=== PATIENT | male | born 1950 | race Caucasian/White ===

== ENCOUNTER 2017-12-05 01:32 | Inpatient (IN) ==
[2017-12-05] MEDS ORDERED: *HR* Heparin 5,000 UNIT/ML VIAL IVP PRN ×2 (03:37)
[2017-12-05] MEDS ORDERED: Naloxone 0.4 MG/ML INJ IVP PRN (03:41)
[2017-12-05] MEDS ORDERED: Acetaminophen 325 MG TABLET PO PRN (03:41)
[2017-12-05] MEDS ORDERED: Heparin 25,000 UNIT/500 ML D5W 25,000 UNIT/500 ML BAG IVC SCH (03:45)
[2017-12-05] MEDS ORDERED: Nitroglycerin 25 MG/250 ML INFUS..BTL IVC SCH (03:45)
--- NOTE | 2017-12-05 03:49 | Internal Med History&Physical ---
Date of Encounter: 12/05/17 Time of Encounter: 03:00 Internal Medicine - H&P: HPI Chief complaint: Chest pain Admitted From: Home Plans for Post Hospital Care: Home History of present illness: Mr. Garcias is a 67 year old male presented to [place] emergency room for chest pain. Past medical history is significant for CAD S/P CABG, hypertension. Patient had CABG 6 years ago. Patient has another "heart attack" 4 years ago and had [facility] which shows 2 vessels are 100% blocked, cannot place stents, recommend medical management. Patient does not have angina since then. Today around 6 PM, he started to have left arm pain then developed left-sided chest pain. The pain is dull, 8/10, constant. Patient took nitroglycerin sublingual but pain is not improved on nitroglycerin. Patient has shortness of breath, nausea, and diaphoresis. In [place] [facility], patient was given nitroglycerin again, patient still has pain. Patient has to be given morphine to control the pain. Patient was considered unstable angina and was started heparin and nitroglycerin drip. Patient was transferred to our hospital for further management. As patient arrived to our hospital, his chest pain resolved. Patient will be admitted for further management. Past Med Surg Social Fam HX - Past Medical History Medical history: coronary artery disease, hyperlipidemia, hypertension, myocardial infarction, RA, other Additional medical history: CHRONIC BACK PAIN Psychiatric history: no psych history - Past Surgical History Additional surgical history: Abdominal surgery. Heart caths - Social History Smoking Status: Never smoker Smokeless Tobacco Status: No Alcohol use: none Drug use: none - Family History Mother History Unknown: Yes Internal Medicine - H&P: Meds Albuterol Sulfate 5 mg IH TID 11/01/15 [History] Aspirin 325 mg PO DAILY 11/01/15 [History] Clopidogrel Bisulfate [Plavix] 75 mg PO DAILY 11/01/15 [History] Isosorbide MONOnitrate (24 HR) [Imdur] 30 mg PO DAILY 11/01/15 [History] Lisinopril [Zestril] 2.5 mg PO DAILY 11/01/15 [History] Metoprolol [Lopressor] 25 mg PO BID 11/01/15 [History] Omeprazole [PriLOSEC] 20 mg PO BIDAC 11/01/15 [History] Pravastatin Sodium [Pravachol] 40 mg PO HS 11/01/15 [History] Primidone [Mysoline] 50 mg PO BID 11/01/15 [History] Ranolazine [Ranexa] 500 mg PO BID 11/01/15 [History] Spironolactone [Aldactone] 25 mg PO BID 11/01/15 [History] Furosemide [Lasix] 40 mg PO DAILY 11/27/16 [History] 3 Allergy/AdvReac Type Severity Reaction Status Date / Time pregabalin [From Lyrica] Allergy See Verified 12/04/17 23:25 Comments hydrocodone AdvReac Nausea Verified 12/04/17 23:25 All Systems PM: A 10-system review of systems was performed and is negative for pertinent findings except as documented above in the HPI. - Constitutional Vitals: Temp Pulse Resp BP Pulse Ox 98.0 F 76 18 136/88 95 12/05/17 03:02 12/05/17 03:02 12/05/17 03:02 12/05/17 03:02 12/05/17 03:02 General appearance: Present: A&O X 3, no acute distress, answers questions appropriately - Head Head exam: Present: atraumatic, normocephalic - Eye Eye exam: Present: PERRL, conjuntiva pink, sclera anicteric Pupils: Present: PERRL - Neck Neck exam general surgery: Present: supple, trachea midline. Absent: lymphadenopathy - Respiratory Respiratory exam: Present: CTAB. Absent: accessory muscle use, rales, rhonchi, wheezes - Cardiovascular Cardiovascular exam: Present: RRR, +S1, +S2. Absent: diastolic murmur, gallop, rubs, systolic murmur - GI/Abdominal GI/Abdominal exam: Present: normal bowel sounds, soft, no peritoneal signs. Absent: distended, tenderness - Extremities Exam Extremities exam: Present: warm, radial pulses palpable and symmetrical. Absent : calf tenderness, cyanotic, pedal edema - Neurological Exam Neurological exam: Present: CN II-XII intact, oriented X3, no focal deficits. Absent: pronater drift, facial droop, speech deficit - Skin Skin exam: Present: dry, intact Internal Med - H&P Results - EKG Data -: EKG Interpreted by Myself (EKG shows age undetermined inferior and lateral infarct.) EKG shows normal: sinus rhythm Rate: normal - Assessment and plan (1) Unstable angina Current Visit: Yes Status: Acute Assessment and plan: Patient has history of CAD with C showing stenosis cannot be placed with stent. Typical chest pain consider unstable angina and the need to rule out ACS. - Place patient on continuous cardiac monitoring - Track 3 sets of troponin - Cont heparin and NTG drip. - Echo - Obtain [facility] report from [facility] in [facility]. - Consult cardio for medication optimization. (2) CAD (coronary artery disease) Current Visit: Yes Status: Acute Assessment and plan: Management as above Qualifiers: Coronary Disease-Associated Artery/Lesion type: bypass graft [place] vs. transplanted heart: [place] heart Associated angina: with unstable angina Qualified Code(s): I25.700 - Atherosclerosis of coronary artery bypass graft(s) , unspecified, with unstable angina pectoris (3) Hypertension Current Visit: Yes Status: Acute Assessment and plan: Patient is on nitroglycerin drip now. Blood pressure is not high. We will resume home medication after verification. Qualifiers: Hypertension type: essential hypertension Qualified Code(s): I10 - Essential (primary) hypertension (4) DVT prophylaxis Current Visit: Yes Status: Acute Assessment and plan: On heparin drip (5) Chest pain, rule out acute myocardial infarction Current Visit: No Status: Acute Assessment and plan: Management as above - Time Spent With Patient Total time spent is greater than 50% in coordination of care (as documented) at patient's floor/unit and/or counseling patient: 40 minutes Greater than 35 minutes
[2017-12-05 04:52] LABS: Basophils # 0.1 K/mcL (0.0-0.2); Basophils % 0.4 %; Eosinophils # 0.1 K/mcL (0.0-0.6); Eosinophils % 0.6 %; Hematocrit 39.8 % (37.5-50.1); Immature Granulocytes % 0.5 % (0-4); Lymphocytes # 2.2 K/mcL (0.6-4.6); Lymphocytes % 16.7 %; Mean Corpuscular HGB Conc 32.7 g/dL (31.6-35.5); Mean Corpuscular Hemoglobin 30.7 pg (28.0-33.3); Mean Corpuscular Volume 94.1 fL (83.0-100.0); Monocytes # 1.1 K/mcL (0.0-1.3); Monocytes % 8.3 %; Neutrophils # 9.6 K/mcL (1.6-8.9); Platelet Count 140 K/mcL (140-400); Red Blood Count 4.23 M/mcL (4.19-5.50); Red Cell Distribution Width 12.9 % (11.5-14.5); Segmented Neutrophils % 73.5 %
[2017-12-05 05:05] LABS: BUN/Creatinine Ratio 21 (6-26); Blood Urea Nitrogen 15 mg/dL (8-23); Calcium 8.4 mg/dL (8.6-10.3); Carbon Dioxide 28 mEq/L (23-29); Chloride 107 mEq/L (98-107); Glucose 136 mg/dL (70-105); Osmolality,Calculated 297 (280-300); Potassium 3.1 mEq/L (3.5-5.1); Sodium 142 mEq/L (136-145); eGFR For African Americans > 60 (> 60); eGFR For Non-African Americans > 60 (> 60)
[2017-12-05] MEDS ORDERED: Ranolazine 500 MG TAB.ER.12H PO SCH (10:00)
[2017-12-05] MEDS ORDERED: ALBUTEROL SULFATE 5 MG IH SCH (10:00)
--- NOTE | 2017-12-05 10:12 | Internal Med Progress Note ---
<Rakan Hart - Last Filed: 12/05/17 15:27> Date of Encounter: 12/05/17 - Assessment and plan (1) CAD (coronary artery disease) Current Visit: Yes Status: Acute Qualifiers: Coronary Disease-Associated Artery/Lesion type: bypass graft [place] vs. transplanted heart: [place] heart Associated angina: with unstable angina Qualified Code(s): I25.700 - Atherosclerosis of coronary artery bypass graft(s) , unspecified, with unstable angina pectoris (2) Hypertension Current Visit: Yes Status: Acute Qualifiers: Hypertension type: essential hypertension Qualified Code(s): I10 - Essential (primary) hypertension (3) DVT prophylaxis Current Visit: Yes Status: Acute (4) Inferior myocardial infarction Current Visit: Yes Status: Acute - Time Spent With Patient Total time spent is greater than 50% in coordination of care (as documented) at patient's floor/unit and/or counseling patient: - Constitutional Vitals: Temp Pulse Resp BP Pulse Ox 98.6 F 62 16 116/76 95 12/05/17 15:18 12/05/17 15:18 12/05/17 15:18 12/05/17 15:18 12/05/17 15:18 Internal Medicine: Result - Labs CBC & Chem 7: 12/05/17 04:23 12/05/17 04:23 Labs: Short CBC 12/05/17 Range/Units 04:23 WBC 13.1 H (4.3-11.1) K/mcL Hgb 13.0 D (12.9-16.9) g/dL Hct 39.8 (37.5-50.1) % Plt Count 140 (140-400) K/mcL Neutrophils # 9.6 H (1.6-8.9) K/mcL BMP 12/05/17 04:23 Sodium 142 Potassium 3.1 L Chloride 107 Carbon Dioxide 28 BUN 15 Creatinine 0.71 Glucose 136 H Calcium 8.4 L Cardiac Enzymes 12/05/17 12/05/17 Range/Units 04:23 09:15 Troponin I < 0.03 < 0.03 (< 0.04) ng/mL - Impressions Impressions Echocardiogram 12/05/17 03:39 Impressions: LVEF 45%. Normal LV chamber size and wall thickness. Segmental left ventricular systolic dysfunction. Atypical septal motion consistent with post-operative status. Mild left ventricular diastolic dysfunction. Normal right ventricular structure and function. Mild tricuspid regurgitation. No pulmonary hypertension. Left Ventricular Wall Motion: Rest Echo Findings The basal inferior and basal inferior lateral estrada were akinetic. All other wall segments showed normal motion. Findings: Study Quality * Technically adequate exam. ECG Findings * Sinus bradycardia. Left Ventricle * LVEF 45%. * Normal LV chamber size and wall thickness. * Segmental left ventricular systolic dysfunction. * Atypical septal motion consistent with post-operative status. * Mild left ventricular diastolic dysfunction. Right Ventricle * Normal right ventricular structure and function. Left Atrium * Mild to moderately dilated left atrium. Right Atrium * Mildly dilated right atrium. Aortic Valve * Aortic valve not well visualized. * Trace aortic regurgitation. * No aortic stenosis. Mitral Valve * Normal mitral valve structure and function. * No mitral stenosis. * Trace mitral regurgitation. Tricuspid Valve * Normal tricuspid valve structure. * Mild tricuspid regurgitation. * No pulmonary hypertension. Pulmonic Valve * Normal pulmonic valve structure and function. * Trace pulmonic regurgitation. Aorta * Normally sized aortic root. Pericardium * The pericardium appears normal. IVC * The IVC is not well evaluated. Pulmonary Artery * Normal visualized portions of the main pulmonary artery. Consult Discharge Plan - Plan Referrals: NONE,PCP [Primary Care Provider] - - Attending Attestation I examined this patient and my medical decision-making was reviewed with the Resident Physician. I agree with the documented findings, disposition and treatment plan as described except to the extent set forth below. <Gustavo Diaz - Last Filed: 12/05/17 16:01> Date of Encounter: 12/05/17 Time of Encounter: 08:45 - Assessment and plan (1) Chest discomfort Current Visit: Yes Status: Acute Assessment and plan: Presented to [facility] with acute onselt of chest pain, not relieved by nitroglycerin. [place] CAD, prior CABG 6 years ago. Reports [facility] 4 years ago, medical therapy recommended. Serial troponin measurements have been negative. 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 Overall LVEF 45%. Cardiology consulted and discussed finding with patient in depth. Given his presentation and significant history, they recommended a stress test to further evaluate, to which patient declined and states he is not interested in stress testing. He was made aware of the risks of his decision, including undiagnosed significant cardiac issues and potentially worsening symptoms, including cardiac causes of . Cardiology recommended: continuing aspirin, Plavix, atorvastatin, beta cj, ILIANA inhibitor therapy. Increasing Ranexa to 1000 mg twice daily. Increasing Imdur to 60 mg daily. Stop heparin drip and okay to turn off nitroglycerin drip. Possible discharge tomorrow on optimal medical management if patient remains asymptomatic. Plan for outpatient follow up with main cardiology in [place]. (2) CAD (coronary artery disease) Current Visit: Yes Status: Acute Assessment and plan: Management as above Qualifiers: Coronary Disease-Associated Artery/Lesion type: bypass graft [place] vs. transplanted heart: [place] heart Associated angina: with unstable angina Qualified Code(s): I25.700 - Atherosclerosis of coronary artery bypass graft(s) , unspecified, with unstable angina pectoris (3) Hypertension Current Visit: Yes Status: Acute Assessment and plan: Patient is on nitroglycerin drip now, plan to transition to PO imdur (increased dose per cardiology). Blood pressure is not high. Plan to resume home medication Qualifiers: Hypertension type: essential hypertension Qualified Code(s): I10 - Essential (primary) hypertension (4) DVT prophylaxis Current Visit: Yes Status: Acute Assessment and plan: On heparin drip will plan to transition to SQ - Time Spent With Patient Total time spent is greater than 50% in coordination of care (as documented) at patient's floor/unit and/or counseling patient: - Subjective Interval history: Patient seen and evaluated in bed. No acute distress. States chest pain stopped on transport to [facility]. History of CABG 6 years ago, MS 4 yrs ago with two 100% occluded vessels, and notes a similar episode of chest pain approx 1 year ago when he was transferred to [place] for medical management. Denies chest pain currently, notes dyspnea is not new however he denies being on oxygen at home. Denies nausea or vomiting. Denies swelling/edema. - Constitutional Vitals: Temp Pulse Resp BP Pulse Ox 98.2 F 58 16 127/80 98 12/05/17 06:52 12/05/17 06:52 12/05/17 06:52 12/05/17 06:52 12/05/17 06:52 General appearance: Present: cooperative, A&O X 3, pleasant, no acute distress, answers questions appropriately - Head Head exam: Present: atraumatic, normal inspection, normocephalic - Eye Eye exam: Present: EOMI, normal appearance, sclera anicteric - ENT ENT exam: Present: mucous membranes moist - Neck Neck exam general surgery: Present: full ROM, normal inspection, supple - Respiratory Respiratory exam: Present: CTAB. Absent: respiratory distress, rhonchi, stridor , wheezes - Cardiovascular Cardiovascular exam: Present: RRR, +S1, +S2. Absent: distant heart sounds, systolic murmur - GI/Abdominal GI/Abdominal exam: Present: normal bowel sounds, soft, no peritoneal signs. Absent: distended, firm, guarding, tenderness - Extremities Exam Extremities exam: Present: normal inspection, warm. Absent: cyanotic, pedal edema, tenderness - Neurological Exam Neurological exam: Present: alert, oriented X3, no focal deficits. Absent: speech deficit - Psychiatric Psychiatric exam: Present: normal affect, normal mood - Skin Skin exam: Present: dry, intact, normal color, warm. Absent: cyanosis, erythema , rash Internal Medicine: Result - Labs CBC & Chem 7: 12/05/17 04:23 12/05/17 04:23 Labs: Short CBC 12/05/17 Range/Units 04:23 WBC 13.1 H (4.3-11.1) K/mcL Hgb 13.0 D (12.9-16.9) g/dL Hct 39.8 (37.5-50.1) % Plt Count 140 (140-400) K/mcL Neutrophils # 9.6 H (1.6-8.9) K/mcL BMP 12/05/17 04:23 Sodium 142 Potassium 3.1 L Chloride 107 Carbon Dioxide 28 BUN 15 Creatinine 0.71 Glucose 136 H Calcium 8.4 L Cardiac Enzymes 12/05/17 12/05/17 Range/Units 04:23 09:15 Troponin I < 0.03 < 0.03 (< 0.04) ng/mL - Impressions Impressions Echocardiogram 12/05/17 03:39 Impressions: LVEF 45%. Normal LV chamber size and wall thickness. Segmental left ventricular systolic dysfunction. Atypical septal motion consistent with post-operative status. Mild left ventricular diastolic dysfunction. Normal right ventricular structure and function. Mild tricuspid regurgitation. No pulmonary hypertension. Left Ventricular Wall Motion: Rest Echo Findings The basal inferior and basal inferior lateral estrada were akinetic. All other wall segments showed normal motion. Findings: Study Quality * Technically adequate exam. ECG Findings * Sinus bradycardia. Left Ventricle * LVEF 45%. * Normal LV chamber size and wall thickness. * Segmental left ventricular systolic dysfunction. * Atypical septal motion consistent with post-operative status. * Mild left ventricular diastolic dysfunction. Right Ventricle * Normal right ventricular structure and function. Left Atrium * Mild to moderately dilated left atrium. Right Atrium * Mildly dilated right atrium. Aortic Valve * Aortic valve not well visualized. * Trace aortic regurgitation. * No aortic stenosis. Mitral Valve * Normal mitral valve structure and function. * No mitral stenosis. * Trace mitral regurgitation. Tricuspid Valve * Normal tricuspid valve structure. * Mild tricuspid regurgitation. * No pulmonary hypertension. Pulmonic Valve * Normal pulmonic valve structure and function. * Trace pulmonic regurgitation. Aorta * Normally sized aortic root. Pericardium * The pericardium appears normal. IVC * The IVC is not well evaluated. Pulmonary Artery * Normal visualized portions of the main pulmonary artery.
[2017-12-05] MEDS: Aspirin 325 MG TABLET PO SCH (11:18)
[2017-12-05] MEDS: Furosemide 40 MG TABLET PO SCH ×2 (11:19→16:26)
[2017-12-05] MEDS: Spironolactone 25 MG TABLET PO SCH ×2 (11:19→21:42)
[2017-12-05] MEDS: Primidone 50 MG TABLET PO SCH ×2 (11:20→21:42)
--- NOTE | 2017-12-05 11:45 | Cardiology Consult Note ---
Date of Encounter: 12/05/17 Time of Encounter: 11:43 Assessment and Plan (1) Chest discomfort Current Visit: Yes Status: Acute [place] CAD, prior CABG 6 years ago. Reports [facility] 4 years ago, medical therapy recommended. Presents with acute onset of chest discomfort. Serum troponin measurements have been negative. TTE reviewed, which demonstrates evidence of a previous basal inferior/ inferolateral infarct. Overall LVEF 45%. Symptoms, laboratory results, ECGs, and TTE reviewed with patient. Given his presentation and significant history, a stress test was recommended to further evaluate. After discussing the risks, benefits, and alternatives of the procedure, the patient declined and states he is not interested in stress testing. Patient prefers medical therapy only. He was made aware of the risks of his decision, including undiagnosed significant cardiac issues and potentially worsening symptoms, including cardiac causes of . Recommend continue aspirin, Plavix, atorvastatin, beta cj, ILIANA inhibitor therapy. Increase Ranexa to 1000 mg twice daily. Increase Imdur to 60 mg daily. Stop heparin drip. Okay to turn off nitroglycerin drip. All questions answered. No further inpatient cardiology recommendations. Patient states he will followup with his primary cardilogist. (2) CAD in [place] artery Current Visit: Yes Status: Acute Discussion w patient/family: The assessment and plan as outlined above was discussed with the patient and/or family members who expressed understanding and agreement. All questions were answered. Thank you for involving us in the care of your patient. Please call with any questions. History of Present Illness Consult date: 12/05/17 Requesting physician: Layla Rudd Consult reason: Chest pain Chief complaint: Chest pain History of present illness: Mr. Garcias is a 67 year old male with a history of CAD, prior CABG 6 years ago. Reports LHC performed 4 years ago, describes occluded grafts, states medical therapy was recommended. Patient routinely follows with a engineering specialist in [place]. States she was last seen a few months ago, medical therapy recommended. Reports he was working in the yard, subsequently noticed chest discomfort. Decided to come to the hospital for further evaluation. Describes chest discomfort as left-sided, no radiation, nausea, vomiting. Serum troponins are negative. Past Med Surg Social Fam HX - Past Medical History Medical history: coronary artery disease, hyperlipidemia, hypertension, myocardial infarction, RA, other Additional medical history: CHRONIC BACK PAIN Psychiatric history: no psych history - Past Surgical History Additional surgical history: Abdominal surgery. Heart caths - Social History Smoking Status: Never smoker Smokeless Tobacco Status: No Alcohol use: none Drug use: none - Family History Mother History Unknown: Yes Medications and Allergies Albuterol Sulfate 5 mg IH TID 11/01/15 [History] Aspirin 325 mg PO DAILY 11/01/15 [History] Clopidogrel Bisulfate [Plavix] 75 mg PO DAILY 11/01/15 [History] Isosorbide MONOnitrate (24 HR) [Imdur] 30 mg PO DAILY 11/01/15 [History] Metoprolol [Lopressor] 25 mg PO BID 11/01/15 [History] Omeprazole [PriLOSEC] 20 mg PO BIDAC 11/01/15 [History] Pravastatin Sodium [Pravachol] 40 mg PO HS 11/01/15 [History] Primidone [Mysoline] 50 mg PO BID 11/01/15 [History] Ranolazine [Ranexa] 500 mg PO BID 11/01/15 [History] Spironolactone [Aldactone] 25 mg PO BID 11/01/15 [History] Furosemide [Lasix] 20 mg PO TID 11/27/16 [History] Lisinopril [Lisinopril] 2.5 mg PO DAILY 12/05/17 [History] 3 Allergy/AdvReac Type Severity Reaction Status Date / Time pregabalin [From Lyrica] Allergy See Verified 12/04/17 23:25 Comments hydrocodone AdvReac Nausea Verified 12/04/17 23:25 All Systems Review: The remainder of the systems were reviewed and are negative - Cardiovascular Cardiovascular: as per HPI Physical Examination Vital Signs, Last 4 Hours Temp Pulse Resp BP Pulse Ox 12/05/17 11:41 98 F 54 16 121/72 99 General: Conversant, No Apparent Distress HEENT: Atraumatic, Normocephaly, Mucus Membranes Moist Neck: No JVD, Normal carotid pulses Cardiac: Reg Rate and Rhythm, Normal S1 and S2, No Murmur Lungs: Normal Breath Sounds, No Wheeze, Rales, Rhonchi Neuro: Alert and responsive, No focal deficits noted Abdomen: Soft, Non-Tender Skin: No rashes noted on visualized skin Musculoskeletal: No Chest Wall Tenderness Extremities: No Clubbing, No Cyanosis, No Edema Results 12/05/17 04:23 12/05/17 04:23 Lab Results 12/05/17 12/05/17 12/05/17 04:23 04:23 04:23 WBC 13.1 H Hgb 13.0 D Hct 39.8 Plt Count 140 APTT Sodium 142 Potassium 3.1 L Chloride 107 Carbon Dioxide 28 BUN 15 Creatinine 0.71 Glucose 136 H Calcium 8.4 L Troponin I < 0.03 12/05/17 12/05/17 07:58 09:15 WBC Hgb Hct Plt Count APTT 75.4 H D Sodium Potassium Chloride Carbon Dioxide BUN Creatinine Glucose Calcium Troponin I < 0.03 - Imaging and Cardiology Echo: report reviewed Consult Discharge Plan - Plan Referrals: NONE,PCP [Primary Care Provider] -
[2017-12-05] MEDS: *HR* Heparin 5,000 UNIT/ML VIAL SQ SCH ×2 (14:37→21:42)
[2017-12-05] MEDS: Isosorbide MONOnitrate (24 HR) 60 MG TAB.ER.24H PO SCH (14:37)
[2017-12-05] MEDS: Ranolazine 500 MG TAB.ER.12H PO SCH (21:42)
[2017-12-05] MEDS ORDERED: traMADol 50 MG TABLET PO ONE (23:25)
[2017-12-05] MEDS ORDERED: Isovue-370 500 ML INFUS..BTL IV ONE ×2 (23:51→23:53)
[2017-12-06] MEDS ORDERED: Nitroglycerin 0.4 MG TAB.SUBL SL PRN (02:04)
[2017-12-06] MEDS ORDERED: Nitroglycerin 0.4 MG TAB.SUBL SL ONE (02:19)
[2017-12-06] MEDS ORDERED: *HR* OxyCODONE/APAP 5/325 TABLET PO ONE (03:18)
[2017-12-06 04:15] LABS: Basophils % 0.3 %; Eosinophils % 0.1 %; Hematocrit 38.4 % (37.5-50.1); Hemoglobin 12.5 g/dL (12.9-16.9); Immature Granulocytes % 0.5 % (0-4); Lymphocytes # 1.3 K/mcL (0.6-4.6); Lymphocytes % 8.9 %; Mean Corpuscular HGB Conc 32.6 g/dL (31.6-35.5); Mean Corpuscular Hemoglobin 31.2 pg (28.0-33.3); Mean Corpuscular Volume 95.8 fL (83.0-100.0); Mean Platelet Volume 10.2 fL (9.4-12.4); Monocytes # 1.6 K/mcL (0.0-1.3); Monocytes % 10.6 %; Neutrophils # 11.8 K/mcL (1.6-8.9); Platelet Count 128 K/mcL (140-400); Red Blood Count 4.01 M/mcL (4.19-5.50); Red Cell Distribution Width 12.9 % (11.5-14.5); Segmented Neutrophils % 79.6 %
[2017-12-06 04:30] LABS: BUN/Creatinine Ratio 17 (6-26); Blood Urea Nitrogen 13 mg/dL (8-23); Calcium 8.4 mg/dL (8.6-10.3); Carbon Dioxide 28 mEq/L (23-29); Chloride 104 mEq/L (98-107); Glucose 151 mg/dL (70-105); Osmolality,Calculated 287 (280-300); Potassium 3.3 mEq/L (3.5-5.1); Sodium 137 mEq/L (136-145); eGFR For African Americans > 60 (> 60); eGFR For Non-African Americans > 60 (> 60)
[2017-12-06] MEDS: *HR* Heparin 5,000 UNIT/ML VIAL SQ SCH (05:56)
--- NOTE | 2017-12-06 06:01 | Event Note ---
Date of Encounter: 12/06/17 Time of Encounter: 05:00 Called by RN for elevated WBC. Saw pt bedside, pt denies headache, sore throat, cough, SOB, abd pain, nausea, or urination symptoms. Pt is afebrile. WBC 14.8, yesterday 13.1. I didn't see enough indication to start any abx or further test. Will cont closely monitor pt. Pt c/o chest pain earlier, relieved now after percocet 5/325 po once. When I saw pt, he is comfortable on bed w/o complaints.
[2017-12-06 08:02] LABS: Alanine Aminotransferase 10 Units/L (7-52); Albumin 3.7 g/dL (3.5-5.7); Albumin/Globulin Ratio 1.7 (1.1-2.2); Alkaline Phosphatase 26 Units/L (34-104); Aspartate Amino Transferase 11 Units/L (13-39); Bilirubin,Direct 0.3 mg/dL (0.0-0.2); Bilirubin,Indirect 0.9 mg/dL (0.0-1.2); Bilirubin,Total 1.2 mg/dL (0.3-1.0); Globulin 2.2 g/dL (2.4-3.5); Lipase 21 Units/L (11-82); Total Protein 5.9 g/dL (6.4-8.9)
[2017-12-06] MEDS: Primidone 50 MG TABLET PO SCH (08:16)
[2017-12-06] MEDS: Furosemide 40 MG TABLET PO SCH (08:16)
[2017-12-06] MEDS: Aspirin 325 MG TABLET PO SCH (08:16)
[2017-12-06] MEDS: Spironolactone 25 MG TABLET PO SCH (08:16)
[2017-12-06] MEDS: Isosorbide MONOnitrate (24 HR) 60 MG TAB.ER.24H PO SCH (08:16)
[2017-12-06] MEDS: Ranolazine 500 MG TAB.ER.12H PO SCH (08:17)
--- NOTE | 2017-12-06 13:12 | Internal Med Progress Note ---
Date of Encounter: 12/06/17 Time of Encounter: 08:10 - Assessment and plan (1) Unstable angina Current Visit: Yes Status: Acute Assessment and plan: Presented to [place] with acute onselt of chest pain, not relieved by nitroglycerin. [place] CAD, prior CABG 6 years ago. Reports [facility] 4 years ago, medical therapy recommended. Serial troponin measurements have been negative. 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 Overall LVEF 45%. Cardiology consulted on 12/05/17 and discussed finding with patient in depth. Given his presentation and significant history, they recommended a stress test to further evaluate, to which patient declined and states he is not interested in stress testing. He was made aware of the risks of his decision, including undiagnosed significant cardiac issues and potentially worsening symptoms, including cardiac causes of . Cardiology recommended: continuing aspirin, Plavix, atorvastatin, beta cj, ILIANA inhibitor therapy. Increasing Ranexa to 1000 mg twice daily. Increasing Imdur to 60 mg daily. Stopped heparin drip and discontinued nitroglycerin drip. Overnight chest pain returned, workup expanded. CTA chest impression: No findings to suggest pulmonary embolus. Elevation of the right hemidiaphragm. Basilar airspace disease, right greater than left. Atelectasis is favored. A small segment of pneumonia at the right lung base would be difficult to exclude. CMP and lipase unremarkable. Likely still cardiac source. Medication adjusted yesterday by cardiology, held lopressor this morning due to low BP and HR. Consider re-consulting cardiology vs outpatient follow up with main cardiology in [place]. (2) CAD (coronary artery disease) Current Visit: Yes Status: Acute Assessment and plan: Management as above Qualifiers: Coronary Disease-Associated Artery/Lesion type: bypass graft [place] vs. transplanted heart: [place] heart Associated angina: with unstable angina Qualified Code(s): I25.700 - Atherosclerosis of coronary artery bypass graft(s) , unspecified, with unstable angina pectoris (3) Hypertension Current Visit: Yes Status: Acute Assessment and plan: Hx of HTN, BP low normal today. Lopressor held, this is likely secondary to changes in medications yesterday including increasing imdur. May need to readdress dosages of medications before discharge. Continue to monitor. Qualifiers: Hypertension type: essential hypertension Qualified Code(s): I10 - Essential (primary) hypertension (4) DVT prophylaxis Current Visit: Yes Status: Acute Assessment and plan: SQ heparin - Time Spent With Patient Total time spent is greater than 50% in coordination of care (as documented) at patient's floor/unit and/or counseling patient: - Subjective Interval history: Patient seen and evaluated in bed. He notes alternating dull and sharp precordial chest pain that radiated through to his back that began between "4- 7pm" yesterday, he notes improvement overnight but that there is still chest pressure in his central chest. Questionable atelectasis (can't r/o pneumonia) on CT chest however patient denies shortness of breath, he has been afebrile. Noted small increase in leukocytosis. Denies nausea or vomiting, or abdominal pain. Denies swelling/edema. - Constitutional Vitals: Temp Pulse Resp BP Pulse Ox 99.2 F 66 16 108/63 93 12/06/17 11:20 12/06/17 11:20 12/06/17 11:20 12/06/17 11:20 12/06/17 11:20 General appearance: Present: cooperative, A&O X 3, pleasant, no acute distress, answers questions appropriately - Head Head exam: Present: atraumatic, normal inspection, normocephalic - Eye Eye exam: Present: EOMI, normal appearance, conjuntiva pink, sclera anicteric - ENT ENT exam: Present: mucous membranes moist - Neck Neck exam general surgery: Present: full ROM, normal inspection, supple - Respiratory Respiratory exam: Present: CTAB. Absent: respiratory distress, rhonchi, stridor , wheezes - Cardiovascular Cardiovascular exam: Present: RRR, +S1, +S2. Absent: diastolic murmur, gallop, rubs, systolic murmur Additional comments: no chest tenderness to palpation - GI/Abdominal GI/Abdominal exam: Present: normal bowel sounds, soft. Absent: distended, firm , tenderness - Extremities Exam Extremities exam: Present: normal inspection, warm. Absent: cyanotic, pedal edema, tenderness - Neurological Exam Neurological exam: Present: alert, oriented X3, no focal deficits. Absent: speech deficit - Psychiatric Psychiatric exam: Present: normal affect, normal mood - Skin Skin exam: Present: intact, normal color, warm. Absent: cyanosis, rash Internal Medicine: Result - Labs CBC & Chem 7: 12/06/17 03:59 12/06/17 03:59 Labs: Short CBC 12/06/17 Range/Units 03:59 WBC 14.8 H (4.3-11.1) K/mcL Hgb 12.5 L (12.9-16.9) g/dL Hct 38.4 (37.5-50.1) % Plt Count 128 L (140-400) K/mcL Neutrophils # 11.8 H (1.6-8.9) K/mcL BMP 12/06/17 03:59 Sodium 137 Potassium 3.3 L Chloride 104 Carbon Dioxide 28 BUN 13 Creatinine 0.76 Glucose 151 H Calcium 8.4 L Cardiac Enzymes 12/05/17 Range/Units 21:50 Troponin I < 0.03 (< 0.04) ng/mL Liver Function 12/06/17 Range/Units 03:59 Total Bilirubin 1.2 H (0.3-1.0) mg/dL Direct Bilirubin 0.3 H (0.0-0.2) mg/dL AST 11 L (13-39) Units/L ALT 10 (7-52) Units/L Alkaline Phosphatase 26 L (34-104) Units/L Albumin 3.7 (3.5-5.7) g/dL - Impressions Impressions Chest CTA 12/06/17 00:07 IMPRESSION: No findings to suggest pulmonary embolus Elevation of the right hemidiaphragm Basilar airspace disease, right greater than left. Atelectasis is favored. A small segment of pneumonia at the right lung base would be difficult to exclude D/ / Mayo Orantes / Mayo Orantes Interpreting Provider: Mayo Orantes Consult Discharge Plan - Plan Referrals: NONE,PCP [Primary Care Provider] -
--- NOTE | 2017-12-06 13:56 | Discharge Summary ---
<Gustavo Diaz - Last Filed: 12/06/17 14:44> - NOTES TO OUTPATIENT PROVIDER Notes to Outpatient Provider: Patient with unstable angina. Does not wish to pursue treatment past medical management. Imdur increased, tried to increase ranexa but not tolerated. Orders not resulted at time of discharge: Pending orders 12/05/17 21:18 EKG [ECG 12 lead ECG] [ECG] Stat 12/06/17 03:59 Hgb A1C AM 0400 12/07/17 04:00 Basic Metabolic Panel AM 0400 Complete Blood Count [HEME] AM 0400 Date of Encounter: 12/06/17 Time of Encounter: 08:10 - Discharge Diagnosis (1) Unstable angina Priority: Primary Status: Acute (2) CAD (coronary artery disease) Priority: Secondary Status: Acute Qualifiers: Coronary Disease-Associated Artery/Lesion type: bypass graft [place] vs. transplanted heart: [place] heart Associated angina: with unstable angina Qualified Code(s): I25.700 - Atherosclerosis of coronary artery bypass graft(s) , unspecified, with unstable angina pectoris (3) Hypertension Priority: Secondary Status: Acute Qualifiers: Hypertension type: essential hypertension Qualified Code(s): I10 - Essential (primary) hypertension (4) DVT prophylaxis Priority: Secondary Status: Acute Hospital course: Mr. Garcias is a 67 year old male that presented to [place] with acute onselt of chest pain, not relieved by nitroglycerin. Past medical history is significant for CAD S/P CABG, hypertension. History of CABG 6 years ago, [place] 4 yrs ago with two 100% occluded vessels, and notes a similar episode of chest pain approx 1 year ago when he was transferred to [place] for medical management. Discomfort described as left arm pain then developed left-sided chest pain; dull, 8/10, constant. Patient was started heparin and nitroglycerin drip. Patient was transferred to [facility] [place] for unstable angina management. As patient arrived to our hospital, his chest pain resolved. Serial troponin measurements negative. 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 Overall LVEF 45%. Cardiology consulted and discussed finding with patient in depth. Given his presentation and significant history, they recommended a stress test to further evaluate, to which patient declined and states he is not interested in stress testing. He was made aware of the risks of his decision, including undiagnosed significant cardiac issues and potentially worsening symptoms, including cardiac causes of . Cardiology recommended: continuing aspirin, Plavix, atorvastatin, beta cj, ILIANA inhibitor therapy. Increasing Ranexa to 1000 mg twice daily. Increased Imdur to 60 mg daily. Stopped heparin drip and discontinued nitroglycerin drip. Overnight chest pain returned, workup expanded. He noted alternating dull and sharp precordial chest pain that radiated through to his back that began between "4-7pm" the night before, he notes improvement overnight but that there is still chest pressure in his central chest this morning. CTA chest impression: No findings to suggest pulmonary embolus. Elevation of the right hemidiaphragm. Basilar airspace disease, right greater than left. Atelectasis is favored. A small segment of pneumonia at the right lung base would be difficult to exclude. CMP and lipase unremarkable. Likely still cardiac source. Medication adjusted yesterday with increased imdur and ranexa, however, HR was low this morning so lopressor was held. Ranexa reduce to previous home dose prior to discharge. When reviewing test results with patient and treatment options he does not feel there is a need to re-consult cardiology as he does not wish to pursue further intervention. Patient states he wishes to return home today. The risks of discharge with unstable angina were discussed including worsening coronary perfusion, cardiac ischemi, and the risk for . Patient states understanding and still wishes to be discharged home today. Recommending limited activity until outpatient follow up with PCP or cardiology as previously this has worsened patient's chest pain. Recommend close follow up with PCP and cardiology. Discharge discussed with: patient - Time Spent with Patient Total time spent providing and/or coordinating discharge services: Greater than 30 minutes (40mins) - Discharge Medications Prescriptions: Isosorbide MONOnitrate (24 HR) [Imdur] 60 mg PO DAILY #30 tab.er.24h Home Medications: Albuterol Sulfate 5 mg IH TID 11/01/15 [History] Aspirin 325 mg PO DAILY 11/01/15 [History] Clopidogrel Bisulfate [Plavix] 75 mg PO DAILY 11/01/15 [History] Metoprolol [Lopressor] 25 mg PO BID 11/01/15 [History] Omeprazole [PriLOSEC] 20 mg PO BIDAC 11/01/15 [History] Pravastatin Sodium [Pravachol] 40 mg PO HS 11/01/15 [History] Primidone [Mysoline] 50 mg PO BID 11/01/15 [History] Ranolazine [Ranexa] 500 mg PO BID 11/01/15 [History] Spironolactone [Aldactone] 25 mg PO BID 11/01/15 [History] Furosemide [Lasix] 20 mg PO TID 11/27/16 [History] Lisinopril 2.5 mg PO DAILY 12/05/17 [History] Isosorbide MONOnitrate (24 HR) [Imdur] 60 mg PO DAILY #30 tab.er.24h 12/06/17 [ Rx] Nitroglycerin 0.4 mg SL Q5MIN PRN tab.subl 12/06/17 [Rx] Allergies/Adverse Reactions: 3 Allergy/AdvReac Type Severity Reaction Status Date / Time pregabalin [From Lyrica] Allergy See Verified 12/04/17 23:25 Comments hydrocodone AdvReac Nausea Verified 12/04/17 23:25 Date of admission: 12/05/17 03:41 Primary care physician: PCP NONE Consults: 12/05/17 03:46 Consult to Cardiology [CONS] Routine Comment: Consulting Provider: Cardiology [place] Reason for Consult: Chest pain, Hx of CAD with two vessel 100% blocked, cannot place stent. Call Completed: No 12/05/17 07:41 dietary consult [Consult to Nutrition] [CONS] Routine Comment: Consulting Provider: NUTRITION Reason for Dietary Consult: MST Score Discharging clinician: Rakan Hart Anticipated date of discharge: 12/06/17 - Constitutional Vitals: Temp Pulse Resp BP Pulse Ox 99.2 F 66 16 108/63 93 12/06/17 11:20 12/06/17 11:20 12/06/17 11:20 12/06/17 11:20 12/06/17 11:20 General appearance: Present: cooperative, A&O X 3, pleasant, no acute distress, answers questions appropriately - Head Head exam: Present: atraumatic, normal inspection, normocephalic - Eye Eye exam: Present: EOMI, normal appearance, sclera anicteric - Neck Neck exam general surgery: Present: full ROM, normal inspection, supple - Respiratory Respiratory exam: Present: CTAB. Absent: accessory muscle use, respiratory distress, rhonchi, stridor, wheezes - Cardiovascular Cardiovascular exam: Present: RRR, +S1, +S2. Absent: diastolic murmur, gallop, rubs, systolic murmur - GI/Abdominal GI/Abdominal exam: Present: normal bowel sounds, soft. Absent: distended, guarding, tenderness - Extremities Exam Extremities exam: Present: normal inspection, warm. Absent: cyanotic, pedal edema, tenderness - Neurological Exam Neurological exam: Present: alert, oriented X3, no focal deficits. Absent: speech deficit - Psychiatric Psychiatric exam: Present: normal affect, normal mood - Skin Skin exam: Present: intact, normal color, warm. Absent: cyanosis, rash - Patient Status Disposition: Home, Self-Care Condition: Fair Functional capacity at discharge: independent ambulation Overall status at discharge: patient is progressing back to baseline - Discharge Instructions Instructions: Isosorbide Mononitrate (By mouth), Coronary Artery Disease (DC), Chronic Hypertension (DC) Follow Up With: NONE,PCP [Primary Care Provider] - Additional Instructions: Please take all of our medications as prescribed, including your newly increased dose of Imdur. 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 Recommend PCP follow withing the next 3 -5 days and cardiology follow up in the next couple of weeks. Please return or seek medical care for new or worsening symptoms such as worsening chest pain, jaw pain, abdominal pain, back pain, difficulty breathing , trouble swallowing, confusion, dizziness, weakness. With your cardiac history there is a low threshold for the need for medical evaluation if you experience these symptoms. 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 transplanted heart: [place] heart Associated angina: with unstable angina Qualified Code(s): I25.700 - Atherosclerosis of coronary artery bypass graft(s) , unspecified, with unstable angina pectoris (3) Hypertension Status: Acute Qualifiers: Hypertension type: essential hypertension Qualified Code(s): I10 - Essential (primary) hypertension (4) DVT prophylaxis Status: Acute Hospital course: Mr. Garcias is a 67 year old male - Time Spent with Patient Total time spent providing and/or coordinating discharge services: Date of admission: 12/05/17 03:41 Primary care physician: PCP NONE Consults: 12/05/17 03:46 Consult to Cardiology [CONS] Routine Comment: Consulting Provider: Cardiology [place] Reason for Consult: Chest pain, Hx of CAD with two vessel 100% blocked, cannot place stent. Call Completed: No 12/05/17 07:41 dietary consult [Consult to Nutrition] [CONS] Routine Comment: Consulting Provider: NUTRITION Reason for Dietary Consult: MST Score - Constitutional Vitals: Temp Pulse Resp BP Pulse Ox 100 F H 68 16 111/68 93 12/06/17 15:17 12/06/17 15:17 12/06/17 15:17 12/06/17 15:17 12/06/17 15:17 - Attending Attestation I examined this patient and my medical decision-making was reviewed with the Resident Physician. I agree with the documented findings, disposition and treatment plan as described except to the extent set forth below. On my exam patient was in no acute distress, and he denied chest pain. CVS: RRR , lungs: CTAB We discussed risks of not working CP up further and patient did acknowledge the risks, including further cardiac morbidity and . Patient stated he was aware of this and requested to be discharged home. Ranexa was returned to his home dose due to bradycardia. Imdur was increased during admission.
[2017-12-06 15:19] VITALS: BP 111/68
--- NOTE | 2017-12-07 07:10 | Electrocardiograph Report ---
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
[2017-12-07 23:29] LABS: Estimated Average Glucose 117 mg/dl; Hemoglobin A1C 5.7 %
== END 2017-12-06 16:39 | disposition home or self-care (01) | DRG 303 ==
LOC: 2NENU
PROVIDERS: ADMIT Internal Medicine; ATTEND Internal Medicine